=== PATIENT | female | born 1965 | race African-American/Black ===

== ENCOUNTER 2017-08-02 11:57 | Emergency (ER) | payer BC, OTHER | END 2017-08-02 14:35 | disposition home or self-care (01) | LOC: FTE 11:57 | DX: S89.92XA Unspecified injury of left lower leg, initial encounter (principal); X58.XXXA Exposure to other specified factors, initial encounter; Y92.9 Unspecified place or not applicable | CPT/HCPCS: 76882; 76882-RT; 93971; 99285-25 ==